=== PATIENT | female | born 1980 | race Hispanic/Latino ===

== ENCOUNTER 2018-08-30 01:55 | Observation (INO) | payer BC | END 2018-08-30 13:40 | disposition home or self-care (01) | LOC: EDH 01:55 → EDHIP 04:20 → WSH 05:15 ==

== ENCOUNTER 2019-02-27 08:34 | Emergency (ER) | payer BC ==
[~2019-02-27 08:34] MED LIST: ACET-66 PO; ESOM40CA PO
[2019-02-27 09:14] LABS: APPEARANCE,URINE Clear (CLEAR); BILIRUBIN,URINE Negative (NEGATIVE); COLOR,URINE Yellow (YELLOW); GLUCOSE, URINE (UA) Negative (NEGATIVE); KETONES,URINE Negative (NEGATIVE); LEUKOCYTE ESTERASE ,URINE Negative (NEGATIVE); NITRATE,URINE Negative (NEGATIVE); OCCULT BLOOD,URINE Moderate (NEGATIVE); PROTEIN,URINE Negative (NEGATIVE)
[2019-02-27 09:15] LABS: BASOPHILS % (AUTO) 0.3 % (0.0-5.0); EOSINOPHILS % (AUTO) 0.4 % (0.0-8.0); HEMATOCRIT 39.1 % (36-48); LYMPHOCYTES % (AUTO) 21.2 % (21.0-51.0); MEAN CORPUSCULAR HGB CONC 34.2 g/dL (32.0-36.0); MEAN CORPUSCULAR VOLUME 90.6 fL (79-99); MONOCYTES % (AUTO) 7.7 % (3.0-13.0); NEUTROPHILS % (AUTO) 70.4 % (40.0-77.0); PLATELET COUNT (AUTO) 219 K/uL (130-400); RED BLOOD CELL COUNT(AUTO) 4.31 MIL/uL (4.00-5.50); RED CELL DISTRIBUTION WIDTH 14.7 % (11.0-15.5); WHITE BLOOD COUNT (AUTO) 7.4 K/uL (4.8-10.8)
[2019-02-27 09:33] LABS: CREATININE 0.7 mg/dL (0.5-1.5); POTASSIUM 3.8 mmol/L (3.5-5.1)
[2019-02-27 09:59] LABS: ALBUMIN 3.4 g/dL (3.5-5.0); BILIRUBIN,TOTAL 0.3 mg/dL (0.2-1.0); TOTAL PROTEIN, SERUM 7.3 g/dL (6.0-8.3)
== END 2019-02-27 10:26 | disposition home or self-care (01) ==
LOC: EDH 08:34
DX: O20.0 Threatened abortion (principal); Z98.890 Other specified postprocedural states; Z3A.12 12 weeks gestation of pregnancy
CPT/HCPCS: 36415; 76801; 80053; 81003; 84702; 85025

== ENCOUNTER 2021-05-06 10:49 | Observation (INO) | payer BC ==
[~2021-05-06] VITALS: Ht 167.6 cm; Wt 107.5 kg
[~2021-05-06 10:49] MED LIST changes: -ACET-66 PO; -ESOM40CA PO; +OMEP40CA21 PO; +PNV1TABL17 PO; +PROG100C11 PO
== END 2021-05-06 12:30 | disposition home or self-care (01) ==
LOC: LDH 10:49
PROVIDERS: ADMIT Obstetrics & Gynecology; ATTEND Obstetrics & Gynecology
DX: O36.8330 Maternal care for abnormalities of the fetal heart rate or rhythm, third trimester, not applicable or unspecified (principal); Z3A.37 37 weeks gestation of pregnancy
CPT/HCPCS: 59025; 76819; G0378 ×2

== ENCOUNTER → 2021-11-18 | Outpatient (CLI) | payer BC | END | disposition home or self-care (01) | LOC: RAH 09:04 | PROVIDERS: ATTEND Orthopaedic Surgery | DX: S83.242A Other tear of medial meniscus, current injury, left knee, initial encounter (principal); S83.282A Other tear of lateral meniscus, current injury, left knee, initial encounter; S83.512A Sprain of anterior cruciate ligament of left knee, initial encounter; S83.522A Sprain of posterior cruciate ligament of left knee, initial encounter; M23.92 Unspecified internal derangement of left knee; X58.XXXA Exposure to other specified factors, initial encounter; Y93.89 Activity, other specified; Y92.89 Other specified places as the place of occurrence of the external cause; Y99.8 Other external cause status | CPT/HCPCS: 73721 ==

== ENCOUNTER 2022-01-23 06:46 | Day surgery (SDC) | payer BC ==
[2022-01-20 09:55] VITALS: BP 111/72
[2022-01-20 10:10] LABS: BASOPHILS % (AUTO) 0.5 % (0.0-5.0); EOSINOPHILS % (AUTO) 1.1 % (0.0-8.0); HEMATOCRIT 40.5 % (36-48); LYMPHOCYTES % (AUTO) 31.7 % (21.0-51.0); MEAN CORPUSCULAR HEMOGLOBIN 28.3 pg (27.0-33.0); MEAN CORPUSCULAR HGB CONC 31.9 g/dL (32.0-36.0); MEAN CORPUSCULAR VOLUME 88.8 fL (79-99); MONOCYTES % (AUTO) 6.4 % (3.0-13.0); NEUTROPHILS % (AUTO) 59.9 % (40.0-77.0); PLATELET COUNT (AUTO) 186 K/uL (130-400); RED BLOOD CELL COUNT(AUTO) 4.56 MIL/uL (4.00-5.50); RED CELL DISTRIBUTION WIDTH 13.3 % (11.0-15.5); WHITE BLOOD COUNT (AUTO) 5.6 K/uL (4.8-10.8)
[2022-01-20 10:31] LABS: CREATININE 0.7 mg/dL (0.5-1.5); POTASSIUM 4.3 mmol/L (3.5-5.1)
[2022-01-23] VITALS (17 sets, daily range): BP systolic 108–129; BP diastolic 55–89
[~2022-01-23] VITALS: Ht 167.6 cm; Wt 97.2 kg
[~2022-01-23 06:46] MED LIST changes: +CEFAZOLIN SODIUM 1 GM VIAL ONE; +ESOM40CA PO; +IBUP-2077 PO; +LACTATED RINGERS 1000ML 1,000 ML IV ONE; -OMEP40CA21 PO; -PNV1TABL17 PO; -PROG100C11 PO
[2022-01-23] MEDS ORDERED: CEFAZOLIN SODIUM 1 GM VIAL IVP ONE (08:00)
[2022-01-23] MEDS ORDERED: PROPOFOL 10 MG/ML 20ML VIAL IV ONE (08:14)
[2022-01-23] MEDS ORDERED: SUCCINYLCHOLINE CHLORIDE 20 MG/ML 10 ML VIAL ONE (08:14)
[2022-01-23] MEDS ORDERED: MIDAZOLAM HCL 1 MG/ML 2ML VIAL ONE (08:14)
[2022-01-23] MEDS ORDERED: LIDOCAINE PF 100MG/5ML (2%) SYRINGE 5ML ONE (08:14)
[2022-01-23] MEDS ORDERED: FENTANYL CITRATE PF 50 MCG/1 ML 2ML VIAL ONE (08:15)
[2022-01-23] MEDS ORDERED: ROCURONIUM 10MG/1ML SYR 10 MG/ML ML ONE (08:15)
[2022-01-23] MEDS ORDERED: NEOSTIGMINE 5MG/5ML SYR IV ONE (09:18)
[2022-01-23] MEDS ORDERED: GLYCOPYRROLATE 1 MG/5 ML SYRINGE ONE (09:18)
[2022-01-23] MEDS ORDERED: ACET-2079 PO (09:28)
[2022-01-23] MEDS ORDERED: CEPH500B PO (09:28)
[2022-01-23] MEDS ORDERED: ONDANSETRON 4MG INJ ONE (09:35)
[2022-01-23] MEDS ORDERED: KETOROLAC 30MG VIAL (30MG/ML) ONE (09:38)
[2022-01-23] MEDS ORDERED: MEPERIDINE-PF 25 MG/ML SYG ONE ×2 (09:38→09:50)
[2022-01-23] MEDS ORDERED: METOCLOPRAMIDE 10 MG/2 ML VIAL ONE (09:57)
[2022-01-23] MEDS ORDERED: SCOPOLAMINE HYDROBROMIDE 1 EACH ADH..PATCH TD ONE (09:57)
== END 2022-01-23 12:15 | disposition home or self-care (01) ==
LOC: DAH 06:46
PROVIDERS: ATTEND Orthopaedic Surgery
DX: M25.562 Pain in left knee (principal); M25.362 Other instability, left knee; M94.262 Chondromalacia, left knee; E66.9 Obesity, unspecified; Z98.890 Other specified postprocedural states; Z98.891 History of uterine scar from previous surgery; Z98.84 Bariatric surgery status
CPT/HCPCS: 29870; 36415; 80048; 84703; 85025; 87635; A4215; A4221; A4222; A4223; A4649 ×2; A4663; A4930; A5120; A6223; A6450; C1776; C9803; J0330; J0690; J1885; J2001; J2175 ×2; J2250; J2405; J2704; J2710; J2765; J3010; J3490; J7120 ×2

== ENCOUNTER → 2022-07-06 | Outpatient (CLI) | payer BC ==
[~2022-07-06] MED LIST changes: +ACET-2079 PO; -CEFAZOLIN SODIUM 1 GM VIAL ONE; +CEPH500B PO; -LACTATED RINGERS 1000ML 1,000 ML IV ONE
== END | disposition home or self-care (01) ==
LOC: SHCH 13:51
PROVIDERS: ATTEND Student in an Organized Health Care Education/Training Program
DX: Q21.11 Secundum atrial septal defect (principal); I07.1 Rheumatic tricuspid insufficiency; I25.5 Ischemic cardiomyopathy; R42 Dizziness and giddiness
CPT/HCPCS: 93306

== ENCOUNTER 2022-07-28 07:03 | Day surgery (SDC) | payer BC ==
[2022-07-26 08:50] LABS: BASOPHILS % (AUTO) 0.3 % (0.0-5.0); EOSINOPHILS % (AUTO) 0.4 % (0.0-8.0); HEMATOCRIT 35.5 % (36-48); LYMPHOCYTES % (AUTO) 17.1 % (21.0-51.0); MEAN CORPUSCULAR HEMOGLOBIN 27.6 pg (27.0-33.0); MEAN CORPUSCULAR HGB CONC 31.8 g/dL (32.0-36.0); MEAN CORPUSCULAR VOLUME 86.6 fL (79-99); MONOCYTES % (AUTO) 6.5 % (3.0-13.0); NEUTROPHILS % (AUTO) 75.3 % (40.0-77.0); PLATELET COUNT (AUTO) 204 K/uL (130-400); RED CELL DISTRIBUTION WIDTH 14.3 % (11.0-15.5); WHITE BLOOD COUNT (AUTO) 7.7 K/uL (4.8-10.8)
[2022-07-26 09:00] LABS: CREATININE 0.6 mg/dL (0.5-1.5); POTASSIUM 4.1 mmol/L (3.5-5.1)
[2022-07-26 09:02] LABS: INR 0.99 (0.85-1.15); PROTHROMBIN TIME 10.8 SEC (9.6-11.6)
[2022-07-26 09:04] LABS: PARTIAL THROMBOPLASTIN TIME 27.4 SEC (26.3-35.5)
[2022-07-26 14:37] VITALS: BP 98/66
[~2022-07-28] VITALS: Ht 167.6 cm; Wt 100.2 kg
[2022-07-28] VITALS (16 sets, daily range): BP systolic 94–123; BP diastolic 53–85
[~2022-07-28 07:03] MED LIST changes: -ACET-2079 PO; +ALPR1TAB7 PO; -CEPH500B PO; +ESCI-8 PO; +MELO-108 PO
[2022-07-28] MEDS ORDERED: FENTANYL CITRATE PF 50 MCG/1 ML 2ML VIAL ONE (07:49)
[2022-07-28] MEDS ORDERED: MIDAZOLAM HCL 1 MG/ML 2ML VIAL ONE ×2 (07:50→09:00)
[2022-07-28] MEDS ORDERED: FLUMAZENIL 0.1MG/1ML 5ML VIAL IV ONE (07:51)
[2022-07-28] MEDS ORDERED: NALOXONE HCL 0.4 MG/1 ML ML ONE (07:52)
[2022-07-28] MEDS ORDERED: LIDOCAINE HCL 2% VISCOUS 15 ML UDCUP ONE (07:59)
[2022-07-28] MEDS ORDERED: LIDOCAINE PF 100MG/5ML (2%) SYRINGE 5ML ONE (08:59)
[2022-07-28] MEDS ORDERED: DEXAMETHASONE SOD PHOSPHATE 4 MG/ML 1ML VIAL ONE (08:59)
[2022-07-28] MEDS ORDERED: SUCCINYLCHOLINE 200MG/10ML SYR ONE (08:59)
[2022-07-28] MEDS ORDERED: PROPOFOL 10 MG/ML 20ML VIAL IV ONE ×2 (09:00)
== END 2022-07-28 09:30 | disposition home or self-care (01) ==
LOC: DAH 07:03
PROVIDERS: ATTEND Student in an Organized Health Care Education/Training Program
DX: Q21.12 Patent foramen ovale (principal); I08.1 Rheumatic disorders of both mitral and tricuspid valves; Q21.11 Secundum atrial septal defect; R42 Dizziness and giddiness; M23.92 Unspecified internal derangement of left knee; E66.9 Obesity, unspecified; M79.7 Fibromyalgia; M22.42 Chondromalacia patellae, left knee; Z98.84 Bariatric surgery status; Z79.01 Long term (current) use of anticoagulants; Z79.899 Other long term (current) drug therapy; Z98.890 Other specified postprocedural states; Z98.891 History of uterine scar from previous surgery; Z82.49 Family history of ischemic heart disease and other diseases of the circulatory system; Z83.3 Family history of diabetes mellitus; Z80.9 Family history of malignant neoplasm, unspecified; Z83.438 Family history of other disorder of lipoprotein metabolism and other lipidemia; Z72.89 Other problems related to lifestyle; Z68.35 Body mass index [BMI] 35.0-35.9, adult
CPT/HCPCS: 80048; 84703; 85025; 85610; 85730; 36415; 93005; 93325; 93312; J1100; A4223 ×3; J3010; J0330; J2001; J2250; J2704; A4215; A4657; A4213; A7002; A4335; A4222; A4221; A4663; A4216; A4606; 96374; 99152; 99153; 99156; 99157; J2310; J3490